=== PATIENT | female | born 1965 | race Caucasian/White ===

== ENCOUNTER → 2017-09-17 | Day surgery (SDC) | payer OTHER ==
[~2017-09-17] MED LIST: DEXAMETHASONE SOD PHOS 4 MG/ML VIAL ONE; EPINEPHrine HCL (1:1000) 1 MG/ML VIAL ONE; LACTATED RINGER'S 1000 ML INJ 1,000 ML ONE; MIDAZOLAM HCL 2 MG/2 ML VIAL ONE; MOXIFLOXACIN 0.5% OPHT SOLN 3 ML BTL ONE; ONDANSETRON HCL 4 MG/2 ML VIAL IV PUSH ONE; PHENYLEPHRINE HCL 10% OPTH SOLN 5 ML BTL ONE; PROPOFOL 200 MG/20 ML AMP IV ONE; SODIUM CHLORIDE 0.9% INJ 10 ML ONE; TETRACAINE 0.5% OPTH SOLN 15 ML BTL ONE; TOBRAMYCIN/DEXAMETHASONE OPTH OINT 3.5 GM TUBE ONE; TRIAMCINOLONE ACETONIDE 40 MG/ML VIAL ONE; ceFAZolin INJ 1,000 MG VIAL ONE; prednisoLONE ACETATE 1% OPHT SUSP 5 ML BTL ONE
--- NOTE | 2017-09-23 15:53 | MP ---
cc: Sivakumar Don MD DATE OF OPERATION: 09/17/2017 PREOPERATIVE DIAGNOSIS: Severe proliferative diabetic retinopathy, severe tractional retinal detachment, nasal macular lagging left eye. PREOPERATIVE DIAGNOSIS: Severe proliferative diabetic retinopathy, severe tractional retinal detachment, nasal macular lagging left eye. PROCEDURE PERFORMED: Pars plano vitrectomy, severe tractional retinal detachment repair, endolaser, air fluid exchange, insertion of 15% C3F8 gas, left eye. COMPLICATIONS: None. ESTIMATED BLOOD LOSS: Less than 1 milliliter. ANESTHESIA: Dr. Kent, general. INDICATIONS FOR PROCEDURE: This nice patient presented with severe longstanding loss of vision in her left eye. The patient was found to have the macula drug nasally, with severe tractional complexes along with significant ischemia and near vascularization. The patient elected for surgical correction, understanding risks, benefits and alternatives, which are significant. PROCEDURE NOTE: After informed consent was obtained, she was taken to the operating room, general anesthesia was established. The left eye was prepped and draped in sterile fashion with Betadine in the conjunctival fornix. A 3 port pars vitrectomy was established with self-retaining infusion cannula. Core vitreous was evacuated and the tractional complex was circumscribed. The tractional was segmented into distinct with vitrectomy, then delaminated, underlying retina and with curved scissors and removed with intraocular forceps. The retina had increased mobility and improved opposition to underlying RPE. A subretinal band was also noted and removed with intraocular forceps. The retina had improved opposition to underlying RPE. Air fluid exchange was carried out and endolaser was applied and completed panretinal for coagulation and surrounding areas of dissection. A 15% C3F8 gas was instilled. Trocar was removed and sclerotomies closed. Subconjunctival injection of Ancef and dexamethasone were given. The eye was patched with tobramycin ointment. The patient was brought to the recovery room in stable condition and continue to followup with [facility] for her postoperative care. MD HERMES Serrato/LORENZO , 10:20 PM , 12:10 AM
== END | disposition home or self-care (01) ==
LOC: ESDC 06:20
PROVIDERS: ATTEND Ophthalmology
DX: E11.3522 Type 2 diabetes mellitus with proliferative diabetic retinopathy with traction retinal detachment involving the macula, left eye (principal); Z79.84 Long term (current) use of oral hypoglycemic drugs
CPT/HCPCS: 00145; 67113; J0171; J0690; J1100; J2250; J2405; J3010; J7120; J3301